=== PATIENT | male | born 1990 | race Caucasian/White ===

== ENCOUNTER 2016-07-07 08:20 | Emergency (ER) | payer SELFPAY ==
[~2016-07-07] VITALS: Ht 182.9 cm; Wt 148.0 kg
[~2016-07-07 08:20] MED LIST: IBUP800T23 PO; MMW SSP; PENI500T PO; TESS200C PO; TRAM50 PO; ZITH250T PO
[2016-07-07 08:25] VITALS: BP 136/82; PULSE 94; RESP 16; TEMP 98.5; O2SAT 96
[2016-07-07] MEDS ORDERED: LIDOCAINE 1%/EPINEPHrine 1:100,000 SOLN 20 ML VIAL INFIL ONE (08:45)
--- NOTE | 2016-07-07 08:56 | PD ---
HPI Chief Complaint: Skin Problem Time Seen by Provider: 08:33 Travel History International Travel<30 days: No Contact w/Intl Traveler<30days: No Traveled to known affect area: No History of Present Illness HPI Patient 25-year-old male presents with swelling and tenderness and redness over his right chest wall in the midaxillary line for the past 3 days. Patient states he is gradually grown in size. Has had these chronically for maneuver in this location. He is to place warm compresses but it is not started draining and has not come to ahead. Came today for evaluation. Denies any history of diabetes or HIV. Denies fever denies abdominal pain denies shortness of breath or substernal chest pain. PFSH Past Medical History Medical History: Denies Significant Hx Hx Anticoagulant Therapy: No Cardiovascular Problems: No Chemotherapy: No Cerebrovascular Accident: No Diabetes: No Diminished Hearing: No Respiratory: No Immunizations Current: Yes Tetanus Vaccination: Unknown Past Surgical History Surgical History: No Previous Surgery Social History Alcohol Use: No Tobacco Use: Yes (E-CIG) Substance Use: No Allergies-Medications (Allergen,Severity, Reaction): Coded Allergies: No Known Allergies (Verified , 07/07/16) Reported Meds & Prescriptions Reported Meds & Active Scripts Active Walden (Hydrocodone-Acetaminophen) 5-325 mg Tab 1 Tab PO Q6H PRN Bactrim DS (Sulfamethoxazole-Trimethoprim) 800-160 Mg Tab 2 Tab PO BID 7 Days Review of Systems Except as stated in HPI: all other systems reviewed are Neg Physical Exam Narrative GENERAL: Well-nourished, well-developed patient. SKIN: Warm and dry. There is a golf all sized abscess in the right mid axillary region just above the level of the nipple. There is fluctuance without coming to a head. No drainage at this point. There is surrounding cellulitis extending approximately 7-8 cm in all directions from the abscess. HEAD: Normocephalic. EYES: No scleral icterus. No injection or drainage. NECK: Supple, trachea midline. No JVD or lymphadenopathy. CARDIOVASCULAR: Regular rate and rhythm without murmurs, gallops, or rubs. RESPIRATORY: Breath sounds equal bilaterally. No accessory muscle use. GASTROINTESTINAL: Abdomen soft, non-tender, nondistended. MUSCULOSKELETAL: No cyanosis, or edema. BACK: Nontender without obvious deformity. No CVA tenderness. Data Data Last Documented VS Vital Signs Date Time Temp Pulse Resp B/P Pulse Ox O2 Delivery O2 Flow Rate FiO2 07/07/16 08:25 98.5 94 16 136/82 96 Orders Ed Poc Ultrasound (07/07/16 08:34) Lidocai-Epi 1%-1:100,000 Inj (Xylocaine- (07/07/16 08:45) MDM Medical Decision Making Medical Screen Exam Complete: Yes Emergency Medical Condition: Yes Differential Diagnosis Abscess, cellulitis, sebaceous cyst, hidradenitis suppurativa. Narrative Course Patient was roomed in the emergency department, I have discussed the risks benefits competitions and alternatives of incision and drainage including very low risk for intrathoracic extension he agrees for drainage in the emergency department. She isn't drainage well tolerated by the patient then suffered no untoward event. Discussed care of his wound and return to ED criteria as below. He is stable for discharge. Procedures Procedure Narrative INCISION AND DRAINAGE: After risks benefits competitions and alternatives were discussed and the patient verbalizes consent. Patient was placed in the left lateral position with his right arm above his head. Patient was anesthetized with 1% lidocaine with epinephrine to a total of 2 cc. An 11 blade was used to make single incision in the skin taking care to only breech the skin. This yielded immediate bloody and purulent discharge. Using blunt dissection with repair forceps and loculations were broken up and a total of approximately a tablespoon of purulent material was removed from the patient's abscess. Was packed with half-inch iodoform packing approximately 8 cm in length of 1 strip. Patient tolerated the procedure well with no untoward events. Hemostasis was achieved. Dressing was applied. Diagnosis Primary Impression: Cutaneous abscess Qualified Code: L02.213 - Cutaneous abscess of chest wall Additional Instructions: Leave the cotton packing in for 48 hours, if your wound is all better he may take it out in 48 hours. If it falls out just watch it very closely for increasing redness. Consider returning to the emergency department in 48 hours for a wound check. We would be happy to take out the cotton packing for you at that time. If you have any shortness of breath increasing fevers recommended she return to the emergency department. Scripts Hydrocodone-Acetaminophen (Walden)5-325 mg Tab1 Tab PO Q6H PRN (PAIN) #10 TAB Ref 0 Prov:Cheko Avina MD 07/07/16 Sulfamethoxazole-Trimethoprim (Bactrim DS)800-160 Mg Tab2 Tab PO BID 7 Days Ref 0 Prov:Cheko Avina MD 07/07/16 Disposition: 01 DISCHARGE HOME Condition: Stable Cheko Avina MD Jul 07, 2016 08:56
[2016-07-07] MEDS ORDERED: NORC5TAB PO (09:25)
[2016-07-07] MEDS ORDERED: BACT800T5 PO (09:25)
== END 2016-07-07 09:33 | disposition home or self-care (01) ==
LOC: PHEFT 08:20
DX: L02.213 Cutaneous abscess of chest wall (principal); Z72.0 Tobacco use
CPT/HCPCS: 10061

== ENCOUNTER 2017-05-11 15:39 | Emergency (ER) | payer SELFPAY ==
[~2017-05-11] VITALS: Ht 185.4 cm; Wt 150.0 kg
[~2017-05-11 15:39] MED LIST changes: +BACT800T5 PO; -IBUP800T23 PO; -MMW SSP; +NORC5TAB PO; -PENI500T PO; -TESS200C PO; -TRAM50 PO; -ZITH250T PO
[2017-05-11 16:07] VITALS: BP 103/58; PULSE 89; RESP 16; TEMP 98.6; O2SAT 96
[2017-05-11] MEDS ORDERED: AMOX875T PO (17:35)
--- NOTE | 2017-05-11 17:40 | PD ---
HPI Chief Complaint: Cold / Flu Symptoms Time Seen by Provider: 17:31 Travel History International Travel<30 days: No Contact w/Intl Traveler<30days: No Traveled to known affect area: No History of Present Illness HPI Patient comes in complaining of cold and flulike symptoms ongoing for a week. Patient states started off having a sore throat now goes into his left ear. Patient complaining of sinus congestion and pressure as well as a headache. Denies any known fevers. Denies any nausea, vomiting, chest pain, shortness of breath, change in bowel or bladder, abdominal pain, neck pain, or change in vision. Patient reports his fianc just tested positive for strep. Patient states has been using [id number] cold flu medication for symptomatic relief with minimal improvement of symptoms. Swallowing makes pain worse. PFSH Past Medical History Hx Anticoagulant Therapy: No Cardiovascular Problems: No Chemotherapy: No Cerebrovascular Accident: No Diabetes: No Diminished Hearing: No Respiratory: No Immunizations Current: Yes Social History Alcohol Use: No Tobacco Use: Yes (E-CIG) Substance Use: No Allergies-Medications (Allergen,Severity, Reaction): Coded Allergies: No Known Allergies (Verified Adverse Reaction, Unknown, 05/11/17) Reported Meds & Prescriptions Reported Meds & Active Scripts Active Amoxicillin 875 Mg Tab 875 Mg PO BID 10 Days Review of Systems Except as stated in HPI: all other systems reviewed are Neg Physical Exam Narrative GENERAL: Well-developed, overly nourished, in no acute distress, and non-ill appearing. SKIN: Focused skin assessment warm and dry. HEAD: Atraumatic. Normocephalic. EYES: Pupils equal and round. EOMI. No scleral icterus. No injection or drainage. ENT: No nasal bleeding or discharge. Mucous membranes pink and moist. Tympanic membranes pearly jean-baptiste bilaterally. Posterior pharynx mildly erythematous without exudate. Uvula is midline. Patient reports tenderness to palpation all facial sinuses. NECK: Trachea midline. No cervical lymphadenopathy. Supple. No nuclear rigidity. CARDIOVASCULAR: Regular rate and rhythm. No murmur appreciated. RESPIRATORY: No accessory muscle use. No respiratory distress. Clear to auscultation. Breath sounds equal bilaterally. MUSCULOSKELETAL: No obvious deformities. No clubbing. No cyanosis. No edema. Full range of motion. NEUROLOGICAL: Awake and alert. No obvious cranial nerve deficits. Motor grossly within normal limits. Normal speech. PSYCHIATRIC: Appropriate mood and affect; insight and judgment normal. Data Data Last Documented VS Vital Signs Date Time Temp Pulse Resp B/P (MAP) Pulse Ox O2 Delivery O2 Flow Rate FiO2 05/11/17 16:07 98.6 89 16 103/58 (73) 96 Orders Orders Ed Discharge Order (05/11/17 17:40) MDM Medical Decision Making Medical Screen Exam Complete: Yes Emergency Medical Condition: Yes Differential Diagnosis Strep pharyngitis, viral pharyngitis, influenza, viral syndrome, URI, sinusitis Narrative Course Patient looks great, non-ill appearing. The patient is tolerating fluids and is well hydrated. Appears pharyngitis possibly Strep. No clinical evidence by history or evaluation to suspect meningitis and/or sepsis. There was no evidence to suggest peritonsillar abscess or retropharyngeal abscess. I discussed with the patient, diagnosis, plan of care and to follow up with the patients primary physician. The patient was given antibiotics. The patient was instructed to return if the worsens in anyway, especially if not tolerating fluids, increased pain or swelling, difficulty swallowing or breathing, or as needed. The patient agreed with plan. Patient in no obvious distress upon re-evaluation. Patient was asked if they wanted to speak to my attending, which the patient did not wish to do at this time. Any questions/concerns in reference to patient diagnosis/condition discussed and clarified prior to patient's discharge. Reinforced sheer importance of close follow up with patient's primary physician or primary care clinic. Instructed patient to return to ED immediately, if symptoms return/ worsen. Patient showed understanding of above instructions. Further instructions and recommendations were detailed in discharge paperwork. Patient ambulated without difficulty out of ED at discharge. Diagnosis Primary Impression: Strep pharyngitis Referrals: [facility] Patient Instructions: General Instructions, Strep Throat (DC) Departure Forms: Work Release Enter return to work date: May 13, 2017 Additional Instructions: Follow-up with your primary care physician next week for reevaluation. Take all medication as prescribed. Use [id number] Tylenol or ibuprofen as needed for pain and/or fever control. Follow instructions on the packaging. Drink plenty of non-Caffeinated and nonalcoholic fluids. Return to the emergency department if symptoms get worse. Med/Other Pt SpecificInfo: Prescription(s) given Scripts Amoxicillin (Amoxicillin) 875 Mg Tab 875 MG PO BID for Infection for 10 Days, #20 TAB 0 Refills Prov: So Bautista MD 05/11/17 Disposition: 01 DISCHARGE HOME Condition: Stable Dexter Martin May 11, 2017 17:40
== END 2017-05-11 17:56 | disposition home or self-care (01) ==
LOC: PHED 15:39 → PHEFT 17:56
DX: J02.0 Streptococcal pharyngitis (principal); F17.290 Nicotine dependence, other tobacco product, uncomplicated
CPT/HCPCS: 99283